=== PATIENT | female | born 1945 | race Caucasian/White ===

== ENCOUNTER 2018-08-06 16:51 | Emergency (ER) | payer BC ==
[~2018-08-06] VITALS: Ht 167.6 cm; Wt 67.6 kg
[2018-08-06] MEDS ORDERED: ASPI1TAB PO (17:00)
[2018-08-06 17:50] LABS: BASO # 0.1 10^3/uL (0.0-0.2); BASO % 0.9 % (0.0-1.0); EOS # 0.1 10^3/uL (0.0-0.50); EOS % 1.8 % (0.0-3.0); HEMATOCRIT 38.1 % (36.0-47.0); LYMPH # 1.8 10^3/uL (1.5-4.5); LYMPH % 31.2 % (24.0-44.0); MEAN CORPUSCULAR HGB CONC 34.1 g/dl (32.0-36.5); MEAN CORPUSCULAR VOLUME 93.8 fl (80.0-96.0); MONO # 0.4 10^3/uL (0.0-0.8); NEUTROPHILS # 3.4 10^3/uL (1.8-7.7); NEUTROPHILS % 58.7 % (36.0-66.0); PLATELET COUNT, AUTOMATED 327 10^3/uL (150-450); RED BLOOD COUNT 4.06 10^6/uL (4.00-5.40); WHITE BLOOD COUNT 5.7 10^3/uL (4.0-10.0)
--- NOTE | 2018-08-06 18:02 | REP ---
Portable chest x-ray: Single view: History: Chest pain. Findings: Mild to moderate cardiac enlargement is noted. The aorta is tortuous and calcific. The lungs are well inflated and clear. The pleural angles are sharp. There is diffuse osteopenia. There are surgical clips in the right axillary or breast soft tissues outside the chest. Impression: Moderate cardiomegaly. Otherwise no acute disease. Electronically Signed by Sanjay Oneil MD 08/06/2018 06:28 P
[2018-08-06 18:17] LABS: ALBUMIN 3.7 GM/DL (3.2-5.2); ALT/SGPT 30 U/L (12-78); BILIRUBIN,DIRECT < 0.1 MG/DL (0.0-0.2); BILIRUBIN,TOTAL 0.3 MG/DL (0.2-1.0); BLOOD UREA NITROGEN 16 MG/DL (7-18); CALCIUM LEVEL 8.7 MG/DL (8.8-10.2); CARBON DIOXIDE LEVEL 27 MEQ/L (21-32); CHLORIDE LEVEL 106 MEQ/L (98-107); CPK CREATINE PHOSPHOKINASE 124 U/L (26-192); CREATININE FOR GFR 0.57 MG/DL (0.55-1.30); GLOMERULAR FILTRATION RATE > 60.0 (>39); GLUCOSE, FASTING 79 MG/DL (70-100); LIPASE 154 U/L (73-393); MB/CK RELATIVE INDEX 2.02 (< OR =4); NT-PRO BNP 257 PG/ML (<125); POTASSIUM SERUM 3.8 MEQ/L (3.5-5.1); SODIUM LEVEL 141 MEQ/L (136-145); TOTAL PROTEIN 6.9 GM/DL (6.4-8.2); TROPONIN I < 0.02 NG/ML (< 0.10)
--- NOTE | 2018-08-06 19:13 | REP ---
CT brain without contrast: History: Right arm numbness. No comparison study. Findings: Preliminary digital [employer] associate radiograph is unremarkable. There is some vascular calcification in the distal internal carotid and distal vertebral arteries. No bony calvarial defect is seen. There is no evidence of paranasal sinusitis. 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 On soft tissue window settings, there is mild diffuse atrophy. There is no evidence of intracranial hemorrhage. No mass, infarct, extra-axial fluid collection, or midline shift is seen. Impression: Mild diffuse atrophy and vascular calcification. No acute intracranial abnormality. Electronically Signed by Sanjay Oneil MD 08/06/2018 07:22 P
[2018-08-06 19:16] VITALS: BP 167/84
--- NOTE | 2018-08-07 11:20 | ECGEPIP ---
Stationary ECG Study [facility] - ED Test Date: 2018-08-06 Pat Name: RODNEY CHRISTOPHER Department: Room: - Gender: F Director Staffing: anna : 1945 Requested By: GÓMEZ MEDINA Order Number: [id number] Reading MD: Myles Wilks Measurements Intervals [place] Rate: 83 P: 34 FL: 164 QRS: 14 QRSD: 85 T: 68 QT: 373 QTc: 440 Interpretive Statements SINUS RHYTHM LEFT ATRIAL ENLARGEMENT NONSPECIFIC T-WAVE ABNORMALITY NO PRIORS FOR COMPARISON Electronically Signed On 08-07-2018 11:19:57 EST by Myles Wilks
== END 2018-08-06 20:02 | disposition home or self-care (01) ==
LOC: M ED 16:51
DX: M79.602 Pain in left arm (principal); I48.91 Unspecified atrial fibrillation; R42 Dizziness and giddiness; Z86.73 Personal history of transient ischemic attack (TIA), and cerebral infarction without residual deficits; Z88.1 Allergy status to other antibiotic agents; Z79.82 Long term (current) use of aspirin